=== PATIENT | female | born 1985 | race Caucasian/White ===

== ENCOUNTER 2018-01-04 21:24 | Emergency (ER) | payer MEDICAID ==
[2018-01-04 21:58] LABS: ADD MAN DIFF? NO
[2018-01-04 22:00] LABS: WHITE BLOOD COUNT 9.6 10^3/ul (4.8-10.8)
[2018-01-04 22:00] LABS: BASOPHILS % 0.2 % (0.0-2.0); EOSINOPHILS # 0.3 10^3/ul (0.0-0.5); HEMATOCRIT 31.6 % (37.0-47.0); HEMOGLOBIN 9.4 g/dl (12.0-16.0); LYMPHOCYTES # 4.1 10^3/ul (0.8-2.9); LYMPHOCYTES % 42.9 % (15.0-51.0); MEAN CORPUSCULAR HEMOGLOBIN 23.9 pg (29.0-33.0); MEAN CORPUSCULAR HGB CONC 29.7 g/dl (32.0-37.0); MEAN CORPUSCULAR VOLUME 80.2 fl (82.0-101.0); MONOCYTE # 0.5 10^3/ul (0.3-0.9); MONOCYTES % 5.1 % (0.0-11.0); NEUTROPHIL # 4.7 10^3/ul (1.6-7.5); NEUTROPHILS % 48.4 % (39.0-77.0); PLATELET COUNT 304 10^3/UL (140-415); RED BLOOD COUNT 3.94 10^6/ul (4.20-5.40); RED CELL DISTRIBUTION WIDTH 15.9 % (11.5-14.5)
[2018-01-04 22:17] LABS: ALANINE AMINOTRANSFERASE 27 IU/L (13-69); ALBUMIN 3.5 g/dl (3.3-4.9); ALBUMIN/GLOBULIN RATIO 0.97; ALKALINE PHOSPHATASE 123 IU/L (42-121); ANION GAP 12 (8-16); ASPARTATE AMINO TRANSFERASE 13 IU/L (15-46); BILIRUBIN,INDIRECT 0.2 mg/dl (0-1.1); BILIRUBIN,TOTAL 0.2 mg/dl (0.2-1.3); BLOOD UREA NITROGEN 24 mg/dl (7-20); CALCIUM 8.7 mg/dl (8.4-10.2); CARBON DIOXIDE 24 mmol/L (21-31); CHLORIDE 109 mmol/L (97-110); CREATININE 1.03 mg/dl (0.44-1.00); GLUCOSE 147 mg/dl (70-220); POTASSIUM 3.8 mmol/L (3.5-5.1); SODIUM 141 mmol/L (135-144); TOTAL PROTEIN 7.1 g/dl (6.1-8.1)
[2018-01-04 22:28] LABS: TROPONIN-I < 0.010 ng/ml (0.000-0.120)
[2018-01-04 23:04] LABS: B-TYPE NATRIURETIC PEPTIDE 41 PG/ML (0-125)
== END 2018-01-04 22:57 | disposition home or self-care (01) ==
LOC: E/R 22:57
DX: D50.9 Iron deficiency anemia, unspecified (principal); R40.2142 Coma scale, eyes open, spontaneous, at arrival to emergency department; R40.2252 Coma scale, best verbal response, oriented, at arrival to emergency department; R40.2362 Coma scale, best motor response, obeys commands, at arrival to emergency department; I10 Essential (primary) hypertension; R07.9 Chest pain, unspecified
CPT/HCPCS: 36415; 71045; 80053; 83880; 84484; 85025; 93005; 99285-25

== ENCOUNTER 2018-03-16 22:14 | Emergency (ER) | payer MEDICAID ==
[2018-03-17 01:49] LABS: ADD MAN DIFF? NO
[2018-03-17 01:51] LABS: BASOPHILS % 0.3 % (0.0-2.0); EOSINOPHILS # 0.2 10^3/ul (0.0-0.5); EOSINOPHILS % 1.3 % (0.0-7.0); HEMATOCRIT 35.6 % (37.0-47.0); HEMOGLOBIN 10.5 g/dl (12.0-16.0); LYMPHOCYTES # 3.9 10^3/ul (0.8-2.9); LYMPHOCYTES % 29.7 % (15.0-51.0); MEAN CORPUSCULAR HGB CONC 29.5 g/dl (32.0-37.0); MEAN CORPUSCULAR VOLUME 81.3 fl (82.0-101.0); MEAN PLATELET VOLUME 10.4 fl (7.4-10.4); MONOCYTE # 0.7 10^3/ul (0.3-0.9); MONOCYTES % 5.1 % (0.0-11.0); NEUTROPHIL # 8.2 10^3/ul (1.6-7.5); NEUTROPHILS % 62.9 % (39.0-77.0); PLATELET COUNT 359 10^3/UL (140-415); RED BLOOD COUNT 4.38 10^6/ul (4.20-5.40); RED CELL DISTRIBUTION WIDTH 14.8 % (11.5-14.5)
[2018-03-17 01:58] LABS: ADD UMIC YES; UR ASCORBIC ACID 20 mg/dL (NEGATIVE); UR BACTERIA FEW /HPF (NONE SEEN); UR BILIRUBIN (Dip) NEGATIVE (NEGATIVE); UR BLOOD (Dip) NEGATIVE (NEGATIVE); UR CLARITY SLIGHTLY CLOUDY (CLEAR); UR COLOR YELLOW (YELLOW); UR GLUCOSE (Dip) NEGATIVE (NEGATIVE); UR KETONES (Dip) NEGATIVE (NEGATIVE); UR LEUKOCYTE ESTERASE (Dip) NEGATIVE Leu/ul (NEGATIVE); UR MUCUS FEW /HPF (NONE SEEN); UR NITRITE (Dip) NEGATIVE (NEGATIVE); UR RBC 2 /HPF (0-5); UR SPECIFIC GRAVITY (Dip) 1.018 (1.003-1.030); UR SQUAMOUS EPITHELIAL CELL FEW /HPF (FEW); UR TOTAL PROTEIN (Dip) 3+ mg/dl (NEGATIVE); UR UROBILINOGEN (Dip) NEGATIVE (NEGATIVE); UR WBC 6 /HPF (0-5)
[2018-03-17] MEDS: ONDANSETRON 4 MG INJ IV (01:59)
[2018-03-17] MEDS: SOD CHLORIDE 0.9% 1,000 ML IV (01:59)
[2018-03-17] MEDS: morphine 4 MG/ML VIAL IV (02:00)
[2018-03-17 02:18] LABS: ALANINE AMINOTRANSFERASE 43 IU/L (13-69); ALBUMIN 3.4 g/dl (3.3-4.9); ALKALINE PHOSPHATASE 141 IU/L (42-121); ANION GAP 13 (8-16); ASPARTATE AMINO TRANSFERASE 24 IU/L (15-46); BILIRUBIN,INDIRECT 0.5 mg/dl (0-1.1); BILIRUBIN,TOTAL 0.5 mg/dl (0.2-1.3); BLOOD UREA NITROGEN 17 mg/dl (7-20); CALCIUM 9.2 mg/dl (8.4-10.2); CARBON DIOXIDE 26 mmol/L (21-31); CHLORIDE 104 mmol/L (97-110); CREATININE 1.11 mg/dl (0.44-1.00); GLUCOSE 132 mg/dl (70-220); LIPASE 50 U/L (23-300); POTASSIUM 3.7 mmol/L (3.5-5.1); SODIUM 139 mmol/L (135-144); TOTAL PROTEIN 7.6 g/dl (6.1-8.1)
[2018-03-17] MEDS: DICYCLOMINE 10 MG CAP PO (05:15)
== END 2018-03-17 05:52 | disposition home or self-care (01) ==
LOC: FTE 22:14
DX: A08.4 Viral intestinal infection, unspecified (principal); I10 Essential (primary) hypertension
CPT/HCPCS: 36415; 74176; 80053; 81001; 83690; 84703; 85025; 96374; 96375; 99285-25

== ENCOUNTER 2019-03-01 18:48 | Emergency (ER) | payer MEDICAID ==
[2019-03-01] MEDS: SOD CHLORIDE 0.9% 1,000 ML IV (21:33)
[2019-03-01] MEDS: KETOROLAC 30 MG INJ IV (21:34)
[2019-03-01] MEDS: METOCLOPRAMIDE 10 MG INJ IV (21:34)
== END 2019-03-01 22:38 | disposition home or self-care (01) ==
LOC: FTE 22:38
DX: R51 Headache (principal); I10 Essential (primary) hypertension
CPT/HCPCS: 81025; 96374; 96375; 99284-25